=== PATIENT | female | born 1935 | race Caucasian/White ===

== ENCOUNTER 2016-12-02 20:50 | Inpatient (IN) | payer MEDICARE, OTHER ==
--- NOTE | ~2016-12-02 | PUL ---
[address] [address] NAME: DAYRON NELSON : 33 STATUS : DIS IN PAT#: [id number] AGE: 81 ADM/REG DATE : 12/02/16 MR#: [id number] REPORT SERV DATE: 12/10/16 DICTATED BY: DANIEL SEN DATE: 12/08/16 REPORT STATUS : Draft TRANSCRIBED BY: MODL DATE: 12/08/16 PULMONARY FUNCTION TEST REFERRING PHYSICIAN: Jose Amato D.O. Overnight oximetry was performed on 2 L nasal cannula. Total valid sampling time was 6 hours and 15 minutes. Saturations were less than 88% for only 2 seconds. INTERPRETATION: Normal oximetry report while on 2 L nasal cannula. ANANT/AYDEL Daniel Sen M.D. / [id number] CC: MD LUIS Hernandez JOHNNIE CLARENCE
--- NOTE | ~2016-12-02 | HP ---
History And Physical [address] [place]. [address] NAME: DAYRON NELSON : 33 STATUS : ADM IN [facility]#: [id number] AGE: 81 ADM/REG DATE : 12/02/16 MR#: [id number] REPORT SERV DATE: 12/03/16 DICTATED BY: EDUARDO HERNANDEZ DATE: 12/02/16 REPORT STATUS : Draft TRANSCRIBED BY: MODL DATE: 12/02/16 DATE OF ADMISSION: 12/02/2016 CHIEF COMPLAINT: Shortness of breath. HISTORY OF PRESENT ILLNESS: This is an 81-year-old lady with history of oxygen-dependent COPD, congestive heart failure, presenting with a shortness of breath. The patient is accompanied by multiple family members, and it is difficult to get a unified history. What seems to be in agreement is that the patient has been declining over the past three days. The patient was also hospitalized at [facility] in [place] for a COPD exacerbation about three weeks ago. At that time, the patient apparently had respiratory acidosis with CO2 greater than 100 and required BiPAP therapy. The patient was hospitalized at [facility] for one week before she was discharged home. The patient has apparently been doing well at home over the past three weeks up until three days ago when she started declining. The patient mainly had shortness of breath and wheezing. The patient really did not have any chest pain. The patient really did not accumulate any fluids. The patient did not have any cough, fevers, or chills. The patient was brought to the ER for further evaluation and care. In the ER, patient was found to be quite tachycardic when she first presented with heart rate of 120s. The patient was also hypoxic to mid 80s percent on 3 L of oxygen. The patient was otherwise hemodynamically stable. Initial lab evaluation was actually all quite benign. ABG showed a mild respiratory acidosis with pH of 7.32 and pCO2 of 77. The patient was also slightly hypoxic with PO2 of 63 on 4 L of oxygen per nasal cannula. Chest x-ray revealed some vascular congestive changes. Internal Medicine consultation was requested for admission of the patient for further evaluation and care. In reviewing pertinent past medical history, the patient was apparently taken off a lot of her medications from her previous hospital stay at [place] including diuretics because the patient was also suffering from an acute kidney injury and hyperkalemia. Also at during her hospitalization at [facility], patient had an episode of atrial fibrillation, for which, the patient was started on Eliquis. The patient did not have any more episode of atrial fibrillation and thus she was taken off the Eliquis after her visit with her PCP about a week and half ago. What is strange is that the patient is also not on any rate controlling agent for her heart. The patient is not on any cardiac medications other than Plavix despite given history of congestive heart failure. It appears the patient is really not following up with anybody other than her PCP. REVIEW OF SYSTEMS: The patient denies any fevers or chills. Also, 14-point review of systems reviewed and negative other than mentioned above. MEDICATIONS: 1. Plavix 75 mg p.o. daily. 2. Albuterol inhaler and nebulizer every four hours as needed. 3. Advair on daily basis. History And Physical [address] [address] NAME: DAYRON NELSON : 33 STATUS : ADM IN [facility]#: [id number] AGE: 81 ADM/REG DATE : 12/02/16 MR#: [id number] REPORT SERV DATE: 12/03/16 DICTATED BY: EDUARDO HERNANDEZ DATE: 12/02/16 REPORT STATUS : Draft TRANSCRIBED BY: FELIPE DATE: 12/02/16 4. Xanax 1 mg p.o. at bedtime. 5. Tylenol PM p.o. at bedtime. ALLERGIES: 1. STATINS. 2. PENICILLIN V. 3. LEVOFLOXACIN. PAST MEDICAL HISTORY: 1. COPD on 3.5 L of oxygen at baseline. The patient really does not follow with a food counter worker. 2. Peripheral artery disease for which patient sees Dr. Rollins. 3. Congestive heart failure, unknown type and ejection fraction. The patient does not really follow with a industrial sweeper cleaner. 4. Hypertension. 5. Anxiety. PAST SURGICAL HISTORY: 1. Left carotid endarterectomy and iliac stents. 2. Hysterectomy. 3. Mastectomy. FAMILY HISTORY: Heart diseases. SOCIAL HISTORY: The patient does not smoke, drink alcohol, or use any illicit drugs. The patient lives at home with her . PHYSICAL EXAMINATION: Vital Signs: Temperature 98.0, blood pressure 146/89, pulse 117, respiratory rate is 22, and saturating 93% on 3 L of oxygen. NEUROLOGIC: The patient is alert and oriented x3 with no focal neurologic deficits. GENERAL: The patient is awake, does not appear to be in acute distress, and she is cooperative. NECK: No JVD. No lymphadenopathy. Normal thyroid. CHEST: No midline sternotomy scar and no tenderness to palpation. LUNGS: The patient has profound wheezes across all lung olmedo and poor aeration in general. The patient otherwise has fairly normal respiratory effort despite only saturating in the mid 80s percent on 4 L of oxygen per nasal cannula. CARDIOVASCULAR: The patient is quite tachycardic, but otherwise, no murmurs, rubs, or gallops, and PMI is nondisplaced. ABDOMEN: Soft, nontender, with active bowel sounds and no organomegaly. EXTREMITIES: No edema. Normal distal pulses. No calf tenderness. SKIN: Clean, dry, warm, and intact. LABORATORY DATA: Sodium is 140, potassium 5.2, chloride 95, BUN 17, creatinine 1.06, glucose 122, calcium is 9.0, LFTs are within normal limits. White blood cell count is 10.7, hemoglobin 11.1, platelets 161, MCV was 102.7. A flu panel was negative for influenza A and History And Physical [address] [address] NAME: DAYRON NELSON : 33 STATUS : ADM IN [facility]#: [id number] AGE: 81 ADM/REG DATE : 12/02/16 MR#: [id number] REPORT SERV DATE: 12/03/16 DICTATED BY: EDUARDO HERNANDEZ DATE: 12/02/16 REPORT STATUS : Draft TRANSCRIBED BY: MODLisseth DATE: 12/02/16 B. ABG; pH is 7.32, pCO2 of 77, PO2 of 63, and oxygen saturation of 93.0% on 32% FiO2 per nasal cannula. Chest x-ray is personally interpreted and it shows a diffuse pulmonary edema. ASSESSMENT: This is an 81-year-old lady with history of chronic obstructive pulmonary disease and congestive heart failure, presenting with a shortness of breath. 1. Chronic obstructive pulmonary disease exacerbation, baseline oxygen dependent at 3.5 L. 2. Also a component of congestive heart failure exacerbation, baseline unknown type and ejection fraction. 3. Acute on chronic hypoxic and hypercapnic respiratory failure with mild respiratory acidosis. 4. Peripheral artery disease. 5. Hypertension. 6. Anxiety. 7. Macrocytosis. PLAN: My plan is to admit the patient under telemetry monitoring. The patient will be given oxygen support and bronchodilator therapy. The patient will also be treated with BiPAP as needed. The patient will be treated with IV steroids, gentle IV Lasix diuresis, as well as antibiotic therapy. In's and out's will be closely monitored as well as electrolytes and renal function. As the patient does not have any established food counter worker in [facility], I will go ahead and put in pulmonology consult as she will need to be followed closely even as an outpatient as well as family requesting a pulmonology input. I will check serial troponins and a BNP and I will also consider checking an echocardiogram. For the rest of stable past medical conditions, including hypertension, anxiety, peripheral artery disease, et al, I will continue home medications. Standard DVT prophylaxis. The patient is full code at this time. YSC/MODL Eduardo Hernandez MD / [id number] CC: Nidhi Ewing MD
--- NOTE | ~2016-12-02 | DS ---
Discharge Summary [address] [place]. [address] NAME: DAYRON NELSON : 33 STATUS : DIS IN PAT#: [id number] AGE: 81 ADM/REG DATE : 12/02/16 MR#: [id number] REPORT SERV DATE: 12/08/16 DICTATED BY: DATE: REPORT STATUS : Draft TRANSCRIBED BY: MODL DATE: 12/07/16 ADMISSION DATE: 12/02/2016 DISCHARGE DATE: 12/07/2016 DISCHARGE DIAGNOSES: Includes: 1. Acute respiratory failure. 2. Chronic obstructive pulmonary disease exacerbation. 3. Hypertension. 4. Heart failure with preserved ejection fraction. CONSULTING PHYSICIANS: Include Daniel Sow M.D. of Pulmonology along with Mr. Emerson Horvath. DISCHARGE MEDICATIONS: Include Xanax 1 mg p.o. at bedtime, Plavix 75 mg p.o. daily, MiraLAX one packet p.o. daily p.r.n. for constipation, Spiriva 18 mcg powder one capsule via HandiHaler inhalation once daily, albuterol 0.083% 3 mL solution one nebulizer q.4 hours, Advair one inhalation b.i.d., prednisone steroid taper 30 mg p.o. daily x1 day, then 20 mg p.o. daily x1 day, and then 10 mg p.o. daily x1 day, and 5 mg p.o. daily x1 day, then 2.5 mg p.o. daily x1 day, then discontinue. IMAGING: Includes a portable chest x-ray demonstrated mild pulmonary venous hypertension with minimal interstitial edema. Echocardiogram, which showed a normal left ventricular systolic function and ejection fraction of 55%. It was noted this was a technically difficult study with limited useful information. The right ventricle was not well seen, could not rule out significant valvular disease due to poor acoustic windows. There was a small posterior loculated pericardial effusion. For full H and P, please refer to Dr. Eduardo Frost's dictation on 12/02/2016. Please also see Mr. Eemrson Horvath's consultation dictation on 12/02/2016. HOSPITAL COURSE/PROBLEM LIST: The patient was admitted on 12/02/2016, with a chief complaint of shortness of breath. She does have a significant medical history of COPD and CHF, although the echo did not demonstrate this. The patient is oxygen dependent at home. Since the time of admission, the patient has been on BiPAP therapy. Pulmonology was consulted to help with the management of this. She has received nebulized treatments following her arterial blood gases. Her initial pH was 7.32, PCO2 of 77, PO2 of 63, bicarbonate 38.7. This was on 2 L nasal cannula. The patient's baseline CO2 is actually in the 50s. After monitoring her arterial blood gases on 12/05/2016, her pH was 7.33, PCO2 of 54, PO2 of 88, and bicarbonate of 27.7. Although her pH was 7.33, she has been receiving acetazolamide daily, believe that this is because of the continued mild acidosis, however, the patient is at baseline respiratory status. She still has some expiratory wheezing. However, this is likely her baseline. She will continue her nebulized treatments at home. With Pulmonology's help, we have set up a trilogy machine for her to use at night at home as well. She is to follow up with Ms. Beverly Angelo MP and Dr. Emmanuel in 4 weeks as an outpatient. She will also get a CT scan of the chest as well as pulmonary function testing to monitor the progression of her COPD. As mentioned above, she will continue her albuterol, Advair, and Spiriva as well as her home O2 during the day. It is explained to Discharge Summary [address] [address] NAME: DAYRON NELSON : 33 STATUS : DIS IN PAT#: [id number] AGE: 81 ADM/REG DATE : 12/02/16 MR#: [id number] REPORT SERV DATE: 12/08/16 DICTATED BY: DATE: REPORT STATUS : Draft TRANSCRIBED BY: MODL DATE: 12/07/16 the patient and her family that if she develops shortness of breath, she is to return to the emergency department. Again, I believe that the patient is at her baseline respiratory status. She is able to ambulate to the restroom without difficulty. Respiratory rate is within normal limits. Her O2 saturation is 95% on 2 L. Her hypertension is controlled. Her last blood pressure was 132/59. Her heart rate is 88. Last temp was 97. Again, the patient will follow up with Pulmonology and continue her home regimen, COPD medications. If she has worsening shortness of breath, she will return to the emergency department for further evaluation. JUANITO/MODL Eren Burgos NP / [id number] CC: MD Chirag Hernandez MD Carlos Baleeiro, M.D.
--- NOTE | ~2016-12-02 | CN ---
Consultation Report [facility] [address] [place]. [address] NAME: DAYRON VO : 33 STATUS : ADM IN PAT#: [id number] AGE: 81 ADM/REG DATE : 12/02/16 MR#: [id number] REPORT SERV DATE: 12/03/16 DICTATED BY: WALDEMAR MARROQUIN DATE: 12/03/16 REPORT STATUS : Draft TRANSCRIBED BY: MODL DATE: 12/03/16 CONSULTATION NOTE DATE OF CONSULTATION: 12/03/2016 CHIEF COMPLAINT: Hypercapnic respiratory failure in a patient with underlying COPD. HISTORY OF PRESENT ILLNESS: Mrs. Edmond Vo is a pleasant 81-year-old white female with a past medical history significant for COPD with oxygen dependence, recent exacerbation with respiratory failure, carotid artery disease, and possible heart failure, who presents to [facility] with complaints of worsening shortness of breath and associated weakness of two to three days' duration. It should be noted that Mrs. Vo was hospitalized as recently as three weeks ago at the [facility], where she was treated for an exacerbation of COPD. Mrs. Vo has been seen by Dr. Vega in the remote past for her underlying lung disease. She is on chronic oxygen supplementation at 3.5 L. The patient quit smoking approximately fifteen years ago, prior to this time, she smoked a pack a day since the age of [age]. She largely denies symptomatology related to obstructive sleep apnea. She has very limited exercise tolerance, being only able to ambulate around her home before experiencing some degree of shortness of breath. Again, the patient was hospitalized as recently as three weeks ago at an outside facility, where she was treated for an exacerbation of COPD. During this hospitalization, she had some associated arrhythmias, which resolved spontaneously. She did eventually improve and transitioned home, where she largely did well for about two weeks. More recently, two to three days ago, she began to feel more weakness and associated decrease in appetite secondary to nausea. During this time, she also began to experience worsening shortness of breath. These symptoms became progressively worse and culminated in her presentation to [facility]'s Emergency Room. Upon arrival, she was found to be normotensive and afebrile. She had appropriate oxygenation saturations on 3 L. Initial blood work revealed a white blood cell count of 10,700. Her serum bicarb was 42. An arterial blood gas was obtained, which revealed a pH of 7.32, PaCO2 of 77, PaO2 of 63, and a bicarb of 38.7. A chest x-ray was obtained, which revealed some atelectatic changes. The patient was given steroids and antibiotics and placed on BiPAP. A subsequent arterial blood gas revealed a pH of 7.31, and PaCO2 of 75, on BiPAP 18/5, rate of 12. For the aforementioned reasons, she has been referred to the Pulmonary Service for further assessment. Currently, Mrs. Vo remains on the BiPAP. She is mentating appropriately. She states that she is feeling much better than when she was first admitted. Her breathing is less labored. She does have some wheezing. She denies any purulent sputum production. She has had no recent episodes of hemoptysis. She has had no recent pneumonias. She does have a known diagnosis of COPD. Consultation Report [address] [address] NAME: DAYRON VO : 33 STATUS : ADM IN [facility]#: [id number] AGE: 81 ADM/REG DATE : 12/02/16 MR#: [id number] REPORT SERV DATE: 12/03/16 DICTATED BY: WALDEMAR MARROQUIN DATE: 12/03/16 REPORT STATUS : Draft TRANSCRIBED BY: FELIPE DATE: 12/03/16 The patient has a known history of carotid artery disease as well as transient arrhythmias. She currently denies any murmurs, angina, or palpitations. The patient has had some mild nausea with associated loss of appetite and weight loss as of late. She denies any fever, chills, abdominal pain, or edema. PAST MEDICAL HISTORY: 1. COPD with oxygen dependence. 2. Atrial flutter, now in normal sinus rhythm. 3. Anxiety. 4. Carotid artery disease. 5. Hypertension. PAST SURGICAL HISTORY: 1. Left carotid endarterectomy. 2. Common iliac stents. 3. Hysterectomy. 4. Lumpectomy. FAMILY HISTORY: The patient states that she had family members who of lung cancer. SOCIAL HISTORY: The patient is . She has family currently at bedside. 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 She denies any known exposures to dust, silica, or asbestos. TOBACCO/ALCOHOL: Again, the patient quit smoking approximately fifteen years ago. She smoked approximately one pack a day since the age of [age]. She denies any recent alcohol or illicit drug use. MEDICATIONS: 1. Albuterol. 2. Advair. 3. Xanax 1 mg. 4. Plavix 75 mg. 5. Diphenhydramine. ALLERGIES: THE PATIENT HAS ALLERGIES TO STATINS. REVIEW OF SYSTEMS: A complete review of systems was performed with pertinent positives and negatives contained within the body of the HPI. PHYSICAL EXAMINATION: VITAL SIGNS: Blood pressure is 138/74, heart rate is 95, T-max is 97.0, respiratory rate is 17, SpO2 is 88% on BiPAP with a 40% FiO2. Consultation Report [address] [address] NAME: DAYRON VO : 33 STATUS : ADM IN [facility]#: [id number] AGE: 81 ADM/REG DATE : 12/02/16 MR#: [id number] REPORT SERV DATE: 12/03/16 DICTATED BY: WALDEMAR MARROQUIN DATE: 12/03/16 REPORT STATUS : Draft TRANSCRIBED BY: FELIPE DATE: 12/03/16 GENERAL: The patient is a pleasant, well-nourished/well-developed female who is not currently exhibiting any signs of acute distress. Skin: Skin with appropriate texture and turgor. No rashes, lesions, or ulcers. Nails are clear without cyanosis or clubbing. HEENT: Head: Skull is normocephalic/atraumatic. Facies symmetric. No masses or lesions. Eyes: Sclera anicteric, conjunctiva pink without exudates. Extra ocular movements intact. Pupils are equal, round, reactive to light. Ears: Auricles and tragus without pain to palpation. Hearing is grossly intact. Nose: Bilateral nasal patency. Sinuses without tenderness upon palpation. Throat: The patient is edentulous. Dentition, lips, oral mucosa, tongue, palate, and pharynx pink and moist without lesions. Uvula rises equally on phonation. Tongue midline without deviation. NECK: Neck supple. Trachea midline. No cervical lymphadenopathy appreciated. THORAX/LUNGS: Mild wheezing and a few scattered rhonchi throughout. CARDIOVASCULAR: Regular rate and rhythm. No murmurs, rubs, or gallops. Anterior chest without thrills, heaves, or lifts. ABDOMEN: Soft. Non-distended, non-tender. Active bowel sounds in all four quadrants. No hepatosplenomegaly noted. PERIPHERAL VASCULAR: No edema. No varicosities, stasis changes, open sores, ulcerations, or phlebitis. 2+ pulses in radial and dorsalis pedis. MUSCULOSKELETAL: Full AROM and PROM in all joints. No evidence of erythema, deformity, or crepitus. NEUROLOGIC: CN II - XII grossly intact. Good muscle bulk and tone bilaterally. Strength 5/5 throughout. PSYCHIATRIC: Patient demonstrates good judgment and insight. Pt is A&O x 3. ACCESSORY DATA: Reveals a white blood cell count of 9800, hemoglobin and hematocrit are 10.1 and 34.9. Creatinine is 1.09, arterial blood gas on 14/02 rate of 12, FiO2 of 40% reveals a pH of 7.31, PaCO2 of 75, PaO2 of 104, and a bicarb of 36.8. Chest x-ray reveals mild pulmonary venous hypertension. Echocardiogram is pending. IMPRESSION: 1. Acute exacerbation of chronic obstructive pulmonary disease. 2. [id number]-cixgbqq hypoxemic, hypercapnic respiratory failure. 3. History of congestive heart failure with mild volume overload. PLAN: 1. At this time, the patient has been appropriately placed on antibiotics, steroids, and nebulized medications. We will adjust these accordingly. We have offered the patient outpatient followup as well as pulmonary function testing. Moving forward, she would probably benefit with the addition of a long-acting antimuscarinic agent. 2. In regard to the patient's [id number] hypoxemic, hypercapnic respiratory failure, we will obtain an overnight pulse oximetry, once the patient has normalized for the possible qualification of noninvasive positive pressure ventilation at hour of sleep Consultation Report [id number] [facility] [place]. [address] NAME: DAYRON VO Prudencio : 31 STATUS : ADM IN [facility]#: [id number] AGE: 81 ADM/REG DATE : 12/02/16 MR#: [id number] REPORT SERV DATE: 12/03/16 DICTATED BY: WALDEMAR MARROQUIN DATE: 12/03/16 REPORT STATUS : Draft TRANSCRIBED BY: MODL DATE: 12/03/16 when she is discharged. We will also provide her a one time dose of acetazolamide. 3. In regard to the patient's possible congestive heart failure, there is an echocardiogram pending. We will follow further recommendations in this regard. The aforementioned impression and plan has been discussed with Dr. Sow, who will follow further recommendations. We thank you for this consult and look forward to participating in the care of Mrs. Dayron Vo. GBS/MODL Waldemar Marroquin PA-C / [id number] CC: Nidhi Ewing
[2016-12-02 20:01] LABS: CARBOXYHEMOGLOBIN 1.6 % (0-3); DEVICE NC; HCO3 (ACTUAL BICARBONATE) 38.7 MEQ/L (23-27); HEMOBLOGIN CONTENT 11.6 G/DL (12-16); INSTRUMENT SERIAL # 8087; METHEMOGLOBIN 0.4 % (0-3); O2 CONTENT 14.9 VOL% (18-24); PCO2 (CO2 TENSION) 77 MMHG (35-45); PO2 (O2 TENSION) 63 MMHG (79-93); SAMPLE Arterial; pH 7.32 (7.37-7.43)
[2016-12-02 20:06] LABS: BASOPHILS 0.3 %; BASOPHILS ABSOLUTE 0.03 10/3/uL (0.0-0.16); EOSINOPHILS 0.8 %; EOSINOPHILS ABSOLUTE 0.09 10/3/uL (0.0-0.53); HEMATOCRIT 37.8 % (36.0-48.0); HEMOGLOBIN 11.1 g/dL (12.0-16.0); IMMATURE GRANULOCYTES 0.8 %; IMMATURE GRANULOCYTES ABSOLUTE 0.08 10/3/uL (0.0-0.11); LYMPHOCYTES 12.2 %; MEAN CORPUSCULAR HEMOGLOB 30.2 pg (26.0-34.0); MEAN PLATELET VOLUME 9.9 fL (9.2-13.0); MONOCYTES 2.2 %; MONOCYTES ABSOLUTE 0.23 10/3/uL (0.21-1.20); NEUTROPHILS 83.7 %; NEUTROPHILS ABSOLUTE 8.93 10/3/uL (2.02-8.40); RBC DISTRIBUTION WIDTH 14.4 % (12.0-16.0); RED CELL COUNT 3.68 10/6/uL (4.0-5.6); WHITE BLOOD CELLS 10.7 10/3/uL (4.5-10.5)
[2016-12-02 20:08] LABS: MANUAL DIFF NO %; MEAN CORPUS HGB CONC 29.4 g/dL (32.0-36.0); MEAN CORPUSCULAR VOLUME 102.7 fL (80-100); PLATELET COUNT 161 10/3/uL (150-400)
[2016-12-02 20:18] LABS: INFLUENZA A SCREEN NEGATIVE (NEGATIVE); INFLUENZA B SCREEN NEGATIVE (NEGATIVE)
[2016-12-02 20:21] LABS: A/G RATIO 0.6 (0.7-1.9); ALBUMIN 2.7 G/DL (3.5-5.0); ALKALINE PHOSPHATASE 89 U/L (45-117); CREATININE 1.05 MG/DL (0.55-1.02); GFR AFRICAN AMERICAN 57 ML/MIN (>=60); GFR NON AFRICAN AMERICAN 49 ML/MIN (>=60); GLOBULIN 4.2 G/DL (2.5-4.1); GLUCOSE, SERUM 122 MG/DL (60-99); POTASSIUM, SERUM 5.2 MMOL/L (3.5-5.3); SGOT(AST) 12 U/L (5-40); SGPT(ALT) 18 U/L (5-65); SODIUM, SERUM 140 MMOL/L (135-148); TOTAL BILIRUBIN 0.4 MG/DL (0-1.2); TOTAL PROTEIN 6.9 G/DL (6.0-8.5)
[2016-12-02 20:22] LABS: BUN (BLOOD UREA NITROGEN) 17 MG/DL (6-23); CHLORIDE, SERUM 95 MMOL/L (96-112); CO2 (CARBON DIOXIDE) 42 MMOL/L (24-34)
[~2016-12-02 20:50] MED LIST: ADVAIR250 INH; ALBUTEROL0.083 % INH; ASAB PO; BYSTOLIC5 MG PO; DUONEB INH; EQUATE PM PO; HYDROCHLOROT25 MG PO; NORV5 PO; PLAVIX PO; PRINZIDE1 TA1 PO; PRINZIDE1 TAB PO; PROVHFA INH; SINGULAIR1 PO; SPIRIVA INH; TYLENOL PM PO; X25 PO; X5 PO; XANAX1 MG PO; ZESTRIL30 MG PO; ZESTRIL40 MG PO
[2016-12-03 03:53] LABS: BASOPHILS 0.1 %; BASOPHILS ABSOLUTE 0.01 10/3/uL (0.0-0.16); EOSINOPHILS 0.1 %; EOSINOPHILS ABSOLUTE 0.01 10/3/uL (0.0-0.53); HEMATOCRIT 34.9 % (36.0-48.0); HEMOGLOBIN 10.1 g/dL (12.0-16.0); LYMPHOCYTES 6.3 %; LYMPHOCYTES ABSOLUTE 0.62 10/3/uL (0.67-4.30); MANUAL DIFF NO %; MEAN CORPUS HGB CONC 28.9 g/dL (32.0-36.0); MEAN CORPUSCULAR HEMOGLOB 29.3 pg (26.0-34.0); MEAN CORPUSCULAR VOLUME 101.2 fL (80-100); MEAN PLATELET VOLUME 10.2 fL (9.2-13.0); MONOCYTES 0.4 %; MONOCYTES ABSOLUTE 0.04 10/3/uL (0.21-1.20); NEUTROPHILS 92.1 %; PLATELET COUNT 156 10/3/uL (150-400); RBC DISTRIBUTION WIDTH 14.5 % (12.0-16.0); RED CELL COUNT 3.45 10/6/uL (4.0-5.6); WHITE BLOOD CELLS 9.8 10/3/uL (4.5-10.5)
[2016-12-03 04:11] LABS: BUN (BLOOD UREA NITROGEN) 22 MG/DL (6-23); CALCIUM, SERUM 8.8 MG/DL (8.5-10.4); CHLORIDE, SERUM 97 MMOL/L (96-112); CO2 (CARBON DIOXIDE) 39 MMOL/L (24-34); CREATININE 1.09 MG/DL (0.55-1.02); GFR AFRICAN AMERICAN 54 ML/MIN (>=60); GFR NON AFRICAN AMERICAN 47 ML/MIN (>=60); GLUCOSE, SERUM 182 MG/DL (60-99); PHOSPHORUS, SERUM 2.9 MG/DL (2.5-4.5); POTASSIUM, SERUM 5.3 MMOL/L (3.5-5.3); SODIUM, SERUM 140 MMOL/L (135-148); TROPONIN I <0.02 NG/ML (<0.05)
[2016-12-03 04:34] LABS: ULTRASENSITIVE TSH 0.393 MCIU/ML (0.358-3.740)
[2016-12-03 04:35] LABS: FOLATE 8.8 NG/ML (>5.2)
[2016-12-03 05:46] LABS: ALLENS TEST Pos; BE (BASE EXCESS) 8.3 MEQ/L (0 +/- 2.5); BIPAP 18/5 cm.H2O; CARBOXYHEMOGLOBIN 0.2 % (0-3); HCO3 (ACTUAL BICARBONATE) 36.8 MEQ/L (23-27); HEMOBLOGIN CONTENT 10.9 G/DL (12-16); INSTRUMENT SERIAL # 8083; METHEMOGLOBIN 0.3 % (0-3); PCO2 (CO2 TENSION) 75 MMHG (35-45); PO2 (O2 TENSION) 104 MMHG (79-93); SAMPLE Arterial; pH 7.31 (7.37-7.43)
[2016-12-03 13:05] LABS: ALLENS TEST Pos; BE (BASE EXCESS) 10.5 MEQ/L (0 +/- 2.5); BIPAP 18/6 cm.H2O; CARBOXYHEMOGLOBIN 0.6 % (0-3); HCO3 (ACTUAL BICARBONATE) 39.3 MEQ/L (23-27); HEMOBLOGIN CONTENT 12.4 G/DL (12-16); INSTRUMENT SERIAL # 35151; METHEMOGLOBIN 0.6 % (0-3); O2 CONTENT 16.1 VOL% (18-24); PCO2 (CO2 TENSION) 77 MMHG (35-45); PO2 (O2 TENSION) 68 MMHG (79-93); SAMPLE Arterial; pH 7.33 (7.37-7.43)
[2016-12-04 03:36] LABS: ALLENS TEST Pos; BE (BASE EXCESS) 7.7 MEQ/L (0 +/- 2.5); BIPAP 20/6 cm.H2O; CARBOXYHEMOGLOBIN 0.2 % (0-3); HCO3 (ACTUAL BICARBONATE) 35.9 MEQ/L (23-27); HEMOBLOGIN CONTENT 11.6 G/DL (12-16); INSTRUMENT SERIAL # 35151; METHEMOGLOBIN 0.5 % (0-3); O2 CONTENT 15.7 VOL% (18-24); OPERATOR ID 35190; PCO2 (CO2 TENSION) 71 MMHG (35-45); PO2 (O2 TENSION) 89 MMHG (79-93); SAMPLE Arterial; pH 7.32 (7.37-7.43)
[2016-12-04 04:09] LABS: BASOPHILS 0.1 %; BASOPHILS ABSOLUTE 0.01 10/3/uL (0.0-0.16); EOSINOPHILS 0 %; HEMATOCRIT 34.8 % (36.0-48.0); HEMOGLOBIN 10.8 g/dL (12.0-16.0); IMMATURE GRANULOCYTES 0.6 %; IMMATURE GRANULOCYTES ABSOLUTE 0.08 10/3/uL (0.0-0.11); LYMPHOCYTES 10.7 %; LYMPHOCYTES ABSOLUTE 1.49 10/3/uL (0.67-4.30); MEAN CORPUSCULAR HEMOGLOB 30.9 pg (26.0-34.0); MEAN CORPUSCULAR VOLUME 99.4 fL (80-100); MEAN PLATELET VOLUME 10.4 fL (9.2-13.0); MONOCYTES 3.4 %; MONOCYTES ABSOLUTE 0.48 10/3/uL (0.21-1.20); NEUTROPHILS 85.2 %; RBC DISTRIBUTION WIDTH 14.8 % (12.0-16.0)
[2016-12-04 04:10] LABS: MANUAL DIFF NO %; PLATELET COUNT 212 10/3/uL (150-400)
[2016-12-04 04:20] LABS: CALCIUM, SERUM 9.4 MG/DL (8.5-10.4); CHLORIDE, SERUM 97 MMOL/L (96-112); CO2 (CARBON DIOXIDE) 35 MMOL/L (24-34); CREATININE 1.27 MG/DL (0.55-1.02); GFR AFRICAN AMERICAN 45 ML/MIN (>=60); GFR NON AFRICAN AMERICAN 39 ML/MIN (>=60); SODIUM, SERUM 138 MMOL/L (135-148)
[2016-12-04 04:21] LABS: BUN (BLOOD UREA NITROGEN) 32 MG/DL (6-23); GLUCOSE, SERUM 127 MG/DL (60-99)
[2016-12-04 04:22] LABS: POTASSIUM, SERUM 5.3 MMOL/L (3.5-5.3)
[2016-12-04 23:10] LABS: ALLENS TEST Pos; BIPAP 20/8 cm.H2O; CARBOXYHEMOGLOBIN 0.3 % (0-3); HCO3 (ACTUAL BICARBONATE) 33.4 MEQ/L (23-27); INSTRUMENT SERIAL # 35151; METHEMOGLOBIN 0.6 % (0-3); O2 CONTENT 16.1 VOL% (18-24); OPERATOR ID 35190; PCO2 (CO2 TENSION) 62 MMHG (35-45); PO2 (O2 TENSION) 84 MMHG (79-93); SAMPLE Arterial; pH 7.35 (7.37-7.43)
[2016-12-05 06:07] LABS: HEMATOCRIT 35.5 % (36.0-48.0); MEAN CORPUSCULAR HEMOGLOB 30.8 pg (26.0-34.0); MEAN CORPUSCULAR VOLUME 99.4 fL (80-100); MEAN PLATELET VOLUME 10.2 fL (9.2-13.0); PLATELET COUNT 208 10/3/uL (150-400); RBC DISTRIBUTION WIDTH 15.2 % (12.0-16.0); RED CELL COUNT 3.57 10/6/uL (4.0-5.6); WHITE BLOOD CELLS 12.6 10/3/uL (4.5-10.5)
[2016-12-05 06:09] LABS: MANUAL DIFF YES %
[2016-12-05 06:22] LABS: ALLENS TEST Pos; BE (BASE EXCESS) 0.9 MEQ/L (0 +/- 2.5); BIPAP 20/8 cm.H2O; CARBOXYHEMOGLOBIN 0.2 % (0-3); HCO3 (ACTUAL BICARBONATE) 27.7 MEQ/L (23-27); HEMOBLOGIN CONTENT 11.5 G/DL (12-16); INSTRUMENT SERIAL # 35151; METHEMOGLOBIN 0.4 % (0-3); O2 CONTENT 15.5 VOL% (18-24); OPERATOR ID 35190; PCO2 (CO2 TENSION) 54 MMHG (35-45); PO2 (O2 TENSION) 88 MMHG (79-93); SAMPLE Arterial; pH 7.33 (7.37-7.43)
[2016-12-05 06:38] LABS: BAND NEUTROPHILS 1 %; LYMPHOCYTES 22 %; LYMPHOCYTES ABSOLUTE (CALC) 2.77 10/3/uL (0.67-4.30); MONOCYTES 4 %; NEUTROPHILS ABSOLUTE (CALC) 9.32 10/3/uL (2.02-8.40); PLATELET ESTIMATE ADQ (ADEQUATE); RBC MORPHOLOGY NORM (NORMAL); SEGMENTED NEUTROPHIL (0) 73 %; TOTAL NUCLEATED CELLS 100
[2016-12-05 07:03] LABS: BUN (BLOOD UREA NITROGEN) 35 MG/DL (6-23); CALCIUM, SERUM 8.5 MG/DL (8.5-10.4); CHLORIDE, SERUM 102 MMOL/L (96-112); CREATININE 1.22 MG/DL (0.55-1.02); GFR AFRICAN AMERICAN 47 ML/MIN (>=60); GFR NON AFRICAN AMERICAN 41 ML/MIN (>=60); POTASSIUM, SERUM 4.9 MMOL/L (3.5-5.3); SODIUM, SERUM 142 MMOL/L (135-148)
[2016-12-05 07:04] LABS: CO2 (CARBON DIOXIDE) 27 MMOL/L (24-34); GLUCOSE, SERUM 97 MG/DL (60-99)
[2016-12-06 05:42] LABS: ALLENS TEST Pos; BE (BASE EXCESS) 2.7 MEQ/L (0 +/- 2.5); CARBOXYHEMOGLOBIN 0.4 % (0-3); DEVICE NC; HCO3 (ACTUAL BICARBONATE) 30.5 MEQ/L (23-27); HEMOBLOGIN CONTENT 11.3 G/DL (12-16); INSTRUMENT SERIAL # 8083; METHEMOGLOBIN 0.2 % (0-3); O2 CONTENT 15.6 VOL% (18-24); OPERATOR ID 334499; PCO2 (CO2 TENSION) 65 MMHG (35-45); PO2 (O2 TENSION) 106 MMHG (79-93); SAMPLE Arterial; pH 7.29 (7.37-7.43)
[2016-12-06 06:13] LABS: BASOPHILS 0.1 %; BASOPHILS ABSOLUTE 0.01 10/3/uL (0.0-0.16); EOSINOPHILS 0.2 %; EOSINOPHILS ABSOLUTE 0.02 10/3/uL (0.0-0.53); HEMATOCRIT 34.1 % (36.0-48.0); HEMOGLOBIN 10.5 g/dL (12.0-16.0); IMMATURE GRANULOCYTES 1.1 %; IMMATURE GRANULOCYTES ABSOLUTE 0.14 10/3/uL (0.0-0.11); LYMPHOCYTES 16.7 %; LYMPHOCYTES ABSOLUTE 2.05 10/3/uL (0.67-4.30); MEAN CORPUS HGB CONC 30.8 g/dL (32.0-36.0); MEAN CORPUSCULAR HEMOGLOB 30.3 pg (26.0-34.0); MEAN CORPUSCULAR VOLUME 98.6 fL (80-100); MEAN PLATELET VOLUME 9.8 fL (9.2-13.0); MONOCYTES 5.7 %; NEUTROPHILS 76.2 %; NEUTROPHILS ABSOLUTE 9.33 10/3/uL (2.02-8.40); PLATELET COUNT 218 10/3/uL (150-400); RBC DISTRIBUTION WIDTH 15.1 % (12.0-16.0); RED CELL COUNT 3.46 10/6/uL (4.0-5.6); WHITE BLOOD CELLS 12.3 10/3/uL (4.5-10.5)
[2016-12-06 06:14] LABS: MANUAL DIFF NO %
[2016-12-06 06:22] LABS: CALCIUM, SERUM 8.4 MG/DL (8.5-10.4); CHLORIDE, SERUM 104 MMOL/L (96-112); CO2 (CARBON DIOXIDE) 30 MMOL/L (24-34); CREATININE 1.13 MG/DL (0.55-1.02); GFR AFRICAN AMERICAN 52 ML/MIN (>=60); GFR NON AFRICAN AMERICAN 45 ML/MIN (>=60); GLUCOSE, SERUM 93 MG/DL (60-99); SODIUM, SERUM 142 MMOL/L (135-148)
[2016-12-06 06:28] LABS: BUN (BLOOD UREA NITROGEN) 40 MG/DL (6-23); POTASSIUM, SERUM 3.6 MMOL/L (3.5-5.3)
[2016-12-07] MEDS ORDERED: MIRALAX POWDER1 PKT PO (12:05)
[2016-12-07] MEDS ORDERED: STERAPDS12 PO (12:06)
[2016-12-07] MEDS ORDERED: ADVAIR250 INH (12:19)
[2016-12-07] MEDS ORDERED: SPIRIVA INH (12:19)
== END 2016-12-07 18:23 | disposition home health service (06) | DRG 189 ==
LOC: ER 20:50 → 7NO 21:30
PROVIDERS: Hospitalist; Internal Medicine; Nurse Practitioner Acute Care; Physician Assistant Medical
PROC: 5A09357 Assistance with Respiratory Ventilation, Less than 24 Consecutive Hours, Continuous Positive Airway Pressure (ICD-10-PCS; principal; 2016-12-03)
DX: J96.22 Acute and chronic respiratory failure with hypercapnia (principal); E87.2 Acidosis; I31.3 Pericardial effusion (noninflammatory); I50.32 Chronic diastolic (congestive) heart failure; I11.0 Hypertensive heart disease with heart failure; R13.10 Dysphagia, unspecified; J44.1 Chronic obstructive pulmonary disease with (acute) exacerbation; Z99.81 Dependence on supplemental oxygen; J96.21 Acute and chronic respiratory failure with hypoxia; F41.9 Anxiety disorder, unspecified; I73.9 Peripheral vascular disease, unspecified; Z90.710 Acquired absence of both cervix and uterus; Z87.891 Personal history of nicotine dependence; Z88.0 Allergy status to penicillin; Z88.1 Allergy status to other antibiotic agents; Z88.8 Allergy status to other drugs, medicaments and biological substances; Z79.02 Long term (current) use of antithrombotics/antiplatelets
CPT/HCPCS: 36600; 71010; 80048; 80053; 82607; 82746; 82805; 83735; 83880; 84100; 84443; 84484; 85025; 87040; 87205; 87804; 92610-GN; 93005; 94640; 94644; 94660; 94762; 99285; A9270-GY; C8929; G8996-CI-GN; G8997-CI-GN; G8998-CI-GN; J0456; Q9957